=== PATIENT | female | born 1990 | race Caucasian/White ===

== ENCOUNTER 2021-10-12 06:23 | Inpatient (IN) | payer MEDICAID ==
[2021-10-12] MEDS ORDERED: Calcium Carbonate 500 MG Tab.Chew PO PRN (07:44)
[2021-10-12] MEDS ORDERED: Ondansetron 4 MG/2 ML SDV IVPUSH PRN (07:44)
[2021-10-12] MEDS ORDERED: Sodium Chloride 0.9% 10 ML Syringe FLUSH PRN (07:44)
[2021-10-12] MEDS ORDERED: Nalbuphine 10 MG/1 ML Vial IVPUSH PRN (07:44)
[2021-10-12] MEDS ORDERED: Oxytocin/Lactated Ringers 10 UNIT/1,000 ML BAG IV SCH ×2 (07:45)
[2021-10-12] MEDS: Lactated Ringers 1,000 ML IV SCH ×4 (08:20→19:39)
[2021-10-12] MEDS ORDERED: diphenhydrAMINE 50 MG/ML SDV IVPUSH PRN (14:29)
[2021-10-12] MEDS ORDERED: ePHEDrine 50 MG/ML SDV IVPUSH PRN (14:29)
[2021-10-12] MEDS: Bupivacaine/fentaNYL/NS 100 ML Bag EPIDUR PRN (14:39)
[2021-10-12] MEDS: fentaNYL 100 MCG/2 ML SDV EPIDUR PRN (14:40)
[2021-10-12] MEDS: Sodium Chloride 0.9% 10 ML Syringe FLUSH SCH (15:26)
[2021-10-12] MEDS ORDERED: Sodium Chloride 0.9% 1,000 ML ONE (15:54)
[2021-10-12] MEDS ORDERED: Oxytocin/Lactated Ringers 20 UNIT/1,000 ML BAG IV SCH (19:15)
[2021-10-12] MEDS ORDERED: Sodium Chloride 0.9% 1,000 ML IRR PRN (21:48)
[2021-10-13] MEDS ORDERED: Bupivacaine 0.25% 10 ML SDV ONE ×2
[2021-10-13] MEDS: fentaNYL 100 MCG/2 ML SDV EPIDUR PRN (03:40)
[2021-10-13] MEDS: Bupivacaine/fentaNYL/NS 100 ML Bag EPIDUR PRN ×2 (05:37)
[2021-10-13] MEDS ORDERED: Azithromycin 500 MG in Sodium Chloride 0.9% 250 ML IV ONE (06:23)
[2021-10-13] MEDS ORDERED: Citric Acid/Sodium Citrate Solution 30 ML Cup PO ONE (06:23)
[2021-10-13] MEDS ORDERED: ceFAZolin 2 GM in Sodium Chloride 0.9% 50 ML IV ONE (06:23)
[2021-10-13] MEDS ORDERED: Metoclopramide 10 MG/2 ML SDV IVPUSH ONE (06:23)
[2021-10-13] MEDS ORDERED: Sodium Bicarbonate 8.4% 50 MEQ/50 ML SDV ONE (06:26)
[2021-10-13] MEDS ORDERED: Lidocaine 2% with EPINEPHrine 1:200,000 20 ML SDV ONE (06:26)
[2021-10-13] MEDS ORDERED: Ondansetron 4 MG/2 ML SDV ONE (06:27)
[2021-10-13] MEDS ORDERED: Oxytocin 10 Units/1 ML SDV ONE (06:28)
[2021-10-13] MEDS ORDERED: Bupivacaine 0.5% 30 ML SDV ONE (06:32)
[2021-10-13] MEDS ORDERED: Carboprost Tromethamine 250 MCG/1 ML Amp ONE (06:53)
[2021-10-13] MEDS ORDERED: ceFAZolin 1 GM Vial ONE (06:56)
[2021-10-13] MEDS ORDERED: Methylergonovine 0.2 MG/1 ML Amp ONE (06:59)
[2021-10-13] MEDS ORDERED: Morphine PF 10 MG/10 ML SDV ONE (07:09)
[2021-10-13] MEDS ORDERED: Lactated Ringers 1,000 ML ONE ×2 (07:10→07:19)
[2021-10-13] MEDS ORDERED: diphenhydrAMINE 50 MG/ML SDV IVPUSH PRN ×2 (07:22→09:33)
[2021-10-13] MEDS ORDERED: Ondansetron 4 MG/2 ML SDV IVPUSH PRN (07:22)
[2021-10-13] MEDS ORDERED: fentaNYL 100 MCG/2 ML SDV IVPUSH PRN (07:22)
[2021-10-13] MEDS ORDERED: Meperidine 50 MG/ML Vial IVPUSH PRN (07:22)
[2021-10-13] MEDS ORDERED: Ketorolac 30 MG/ML SDV ONE (07:46)
[2021-10-13] MEDS ORDERED: Naloxone 0.4 MG/ML SDV IVPUSH PRN (09:33)
[2021-10-13] MEDS ORDERED: Acetaminophen/oxyCODONE 325-5 MG Tab PO PRN (09:33)
[2021-10-13] MEDS ORDERED: Ondansetron 4 MG/2 ML SDV IV PRN (09:33)
[2021-10-13] MEDS ORDERED: Dextrose 5%-Lactated Ringers 1,000 ML IV SCH (09:33)
[2021-10-13] MEDS ORDERED: ePHEDrine 50 MG/ML SDV IVPUSH PRN (09:33)
[2021-10-13] MEDS: Simethicone 80 MG Tab.Chew PO SCH ×4 (13:33→21:43)
[2021-10-13] MEDS: Prenatal Multivitamin with Calcium/Folic Acid/Iron Tab PO SCH (13:34)
[2021-10-13] MEDS: Docusate Sodium 100 MG Cap PO SCH ×2 (13:34→21:43)
[2021-10-13] MEDS: Ferrous Sulfate 324 MG Tab.EC PO SCH (17:24)
[2021-10-13] MEDS: Ibuprofen 800 MG Tab PO SCH (17:24)
[2021-10-14] MEDS: Ibuprofen 800 MG Tab PO SCH ×3 (01:27→16:27)
[2021-10-14] MEDS: Docusate Sodium 100 MG Cap PO SCH ×2 (08:46→22:14)
[2021-10-14] MEDS: Simethicone 80 MG Tab.Chew PO SCH ×4 (08:46→22:15)
[2021-10-14] MEDS: Prenatal Multivitamin with Calcium/Folic Acid/Iron Tab PO SCH (08:47)
[2021-10-14] MEDS: Ferrous Sulfate 324 MG Tab.EC PO SCH ×2 (08:47→16:27)
[2021-10-14] MEDS: Acetaminophen/oxyCODONE 325-5 MG Tab PO PRN ×2 (15:01→22:15)
[2021-10-14] MEDS: Sodium Chloride 0.9% 10 ML Syringe FLUSH SCH (22:53)
[2021-10-15] MEDS: Ibuprofen 800 MG Tab PO SCH ×2 (00:44→08:06)
[2021-10-15] MEDS: Ferrous Sulfate 324 MG Tab.EC PO SCH (08:06)
[2021-10-15] MEDS: Simethicone 80 MG Tab.Chew PO SCH (08:06)
[2021-10-15] MEDS: Prenatal Multivitamin with Calcium/Folic Acid/Iron Tab PO SCH (08:08)
[2021-10-15] MEDS: Docusate Sodium 100 MG Cap PO SCH (08:08)
== END 2021-10-15 12:40 | disposition home or self-care (01) | DRG 788 ==
LOC: JD.OB 06:23 → UNDOADMOB 07:08 → OBSVTOIN 10-13 06:23 → JD.OB 10-13 08:32
PROVIDERS: ADMIT Obstetrics & Gynecology; ATTEND Obstetrics & Gynecology
PROC: 10D00Z1 Extraction of Products of Conception, Low, Open Approach (ICD-10-PCS; principal; 2021-10-13)
PROC: 3E0E7GC Introduction of Other Therapeutic Substance into Products of Conception, Via Natural or Artificial Opening (ICD-10-PCS; 2021-10-13)
PROC: 10H07YZ Insertion of Other Device into Products of Conception, Via Natural or Artificial Opening (ICD-10-PCS; 2021-10-13)
DX: O99.02 Anemia complicating childbirth (principal); O99.62 Diseases of the digestive system complicating childbirth; K21.9 Gastro-esophageal reflux disease without esophagitis; D64.9 Anemia, unspecified; Z87.891 Personal history of nicotine dependence; Z20.822 Contact with and (suspected) exposure to COVID-19; Z37.0 Single live birth; Z3A.39 39 weeks gestation of pregnancy; O76 Abnormality in fetal heart rate and rhythm complicating labor and delivery; O62.1 Secondary uterine inertia
CPT/HCPCS: 36415; 51702; 59025; 85025; 86592; 86850; 86900; 86901; 94762; A9270-GY; J0456; J0690; J1885; J2210; J2274; J2405; J2590; J2765; J3010; J3490; J7050; J7120; J7121; U0002